=== PATIENT | female | born 1985 | race Caucasian/White ===

== ENCOUNTER → 2019-03-31 | Outpatient (CLI) | payer OTHER ==
--- NOTE | 2019-04-01 08:19 | RADIOLOGY REPORT (SQ) ---
EXAM DESCRIPTION: U/S NON-OB PELVIS W/O DOP COMPLETED DATE/TIME: 03/31/2019 6:04 pm REASON FOR STUDY: PAIN IN SEX COMPARISON: None. TECHNIQUE: Dynamic and static grayscale images acquired of the pelvis via transabdominal approach an d recorded on PACS. Additional selected color Doppler and spectral images recorded. LIMITATIONS: None. FINDINGS: UTERUS: Contour normal. No mass. ENDOMETRIAL STRIPE: No focal or generalized thickening. No masses. IUD is in place. CERVIX: No nabothian cysts. RIGHT OVARY AND DOPPLER: Ovary not visualized. LEFT OVARY AND DOPPLER: Ovary not visualized. FREE FLUID: None noted. OTHER: No other significant finding. MEASUREMENTS: UTERUS: 9.2 x 4.3 x 3.4 cm. ENDOMETRIAL STRIPE: 4.0 mm. RIGHT OVARY: Not visualized. LEFT OVARY: Not visualized. IMPRESSION: Nonvisualization of the ovaries. IUD is in place. No other significant findings. TECHNICAL DOCUMENTATION: JOB ID: [id number] [employer] All Rights Reserved Reading location - IP/workstation name: [email or web address]
== END ==
LOC: RAD 16:57
PROVIDERS: ATTEND Nurse Practitioner Family
DX: Z97.5 Presence of (intrauterine) contraceptive device (principal)
CPT/HCPCS: 76856